=== PATIENT | male | born 1960 | race Caucasian/White ===

== ENCOUNTER 2018-03-01 11:44 | Observation (INO) ==
[2018-03-01 12:23] LABS: Basophils # 0.1 K/mcL (0.0-0.2); Basophils % 0.5 %; Eosinophils # 0.1 K/mcL (0.0-0.6); Eosinophils % 0.6 %; Hematocrit 39.3 % (37.5-50.1); Immature Granulocytes % 0.4 % (0-4); Lymphocytes # 1.7 K/mcL (0.6-4.6); Lymphocytes % 16.1 %; Mean Corpuscular HGB Conc 35.6 g/dL (31.6-35.5); Mean Corpuscular Hemoglobin 31.7 pg (28.0-33.3); Mean Corpuscular Volume 88.9 fL (83.0-100.0); Mean Platelet Volume 10.4 fL (9.4-12.4); Monocytes # 0.6 K/mcL (0.0-1.3); Neutrophils # 7.8 K/mcL (1.6-8.9); Platelet Count 202 K/mcL (140-400); Red Blood Count 4.42 M/mcL (4.19-5.50); Red Cell Distribution Width 13.7 % (11.5-14.5); Segmented Neutrophils % 76.4 %
--- NOTE | 2018-03-01 12:42 | Emergency Department Note ---
Disposition Clinical Impression: Chest pain, Weakness Disposition: Admitted As Inpatient Condition: Good Referrals: Renata Fuller MD [Primary Care Provider] - Forms: ED Satisfaction Letter General Adult HPI - General Chief complaint: ED Chest Pain Stated complaint: Weak Time Seen by Provider: 03/01/18 11:50 Source: EMS Limitations: no limitations - History of Present Illness Pain Scale: 0 - Related Data Home Medications Medication Instructions Recorded Confirmed Aspirin [Lo-Dose Aspirin EC] 81 mg PO DAILY 03/01/18 03/01/18 Atorvastatin Calcium [Lipitor] 80 mg PO HS 03/01/18 03/01/18 Lisinopril [Lisinopril] 2.5 mg PO DAILY 03/01/18 03/01/18 Metoprolol [Lopressor] 12.5 mg PO BID 03/01/18 03/01/18 Nitroglycerin [Nitrostat] 0.4 mg SL Q5MIN PRN 03/01/18 03/01/18 Allergies Allergy/AdvReac Type Severity Reaction Status Date / Time No Known Allergies Allergy Verified 03/01/18 13:13 Past Medical History - Past Medical History Medical history: Reports: myocardial infarction Surgical history: Reports: other (Cysto 07/2015--no significant findings. ) Psychiatric history: Reports: no psych history - Social History Smoking Status: Current every day smoker Smokeless Tobacco Status: No Alcohol use: Reports: none Drug use: Reports: none Physical Exam - General Limitations: no limitations General appearance: alert Course Vital Signs Temperature 97.7 F 03/01/18 11:46 Pulse Rate 58 03/01/18 11:46 Respiratory Rate 18 03/01/18 11:46 Blood Pressure 125/72 03/01/18 11:46 O2 Sat by Pulse Oximetry 98 03/01/18 11:46 Temperature 97.7 F 03/01/18 11:46 Pulse Rate 58 03/01/18 11:46 Respiratory Rate 18 03/01/18 11:46 Blood Pressure 125/72 03/01/18 11:46 O2 Sat by Pulse Oximetry 98 03/01/18 11:46 Oxygen Delivery Oxygen Delivery Room Air Medical Decision Making - Lab Data Result diagrams: 03/01/18 12:03 03/01/18 12:03 Lab Results 03/01/18 03/01/18 Range/Units 12:03 12:03 WBC 10.2 (4.3-11.1) K/mcL RBC 4.42 (4.19-5.50) M/mcL Hgb 14.0 (12.9-16.9) g/dL Hct 39.3 (37.5-50.1) % MCV 88.9 (83.0-100.0) fL MCH 31.7 (28.0-33.3) pg MCHC 35.6 H (31.6-35.5) g/dL RDW 13.7 (11.5-14.5) % Plt Count 202 (140-400) K/mcL MPV 10.4 (9.4-12.4) fL Immature Gran % 0.4 (0-4) % Seg Neutrophils % 76.4 % Lymphocytes % 16.1 % Monocytes % 6.0 % Eosinophils % 0.6 % Basophils % 0.5 % Neutrophils # 7.8 (1.6-8.9) K/mcL Lymphocytes # 1.7 (0.6-4.6) K/mcL Monocytes # 0.6 (0.0-1.3) K/mcL Eosinophils # 0.1 (0.0-0.6) K/mcL Basophils # 0.1 (0.0-0.2) K/mcL Sodium 138 (136-145) mEq/L Potassium 3.7 (3.5-5.1) mEq/L Chloride 107 (98-107) mEq/L Carbon Dioxide 26 (23-29) mEq/L BUN 16 (6-20) mg/dL Creatinine 0.74 (0.70-1.30) mg/dL Est GFR ( Amer) > 60 (> 60) Est GFR (Non-Af Amer) > 60 (> 60) BUN/Creatinine Ratio 22 (6-26) Glucose 123 H (70-105) mg/dL Calculated Osmolality 289 (280-300) Calcium 9.2 (8.6-10.3) mg/dL Troponin I < 0.03 (< 0.04) ng/mL Attestation Statement - Attestation Attestation: I examined this patient and my medical decision-making was reviewed with the Resident Physician. I agree with the documented findings, disposition and treatment plan as described except to the extent set forth below. Patient to the ED with chest pain. Onset just prior to arrival. Was accompanied with weakness and nausea. Feeling better after taking home nitroglycerin. On examination he is pleasant and conversant in no acute distress. Heart regular rate and rhythm and lungs are clear. Plan. Cardiac workup is negative. He does have a history of coronary disease and a chest pain that was relieved with nitroglycerin. Patient will be admitted for further cardiac workup. Heart Score - Score History: Highly Suspicious EKG: Non Specific repolarisation Disturbance Age: 45-65 Risk Factors: Equal/Greater than 3 risk factor or history of atherosclerotic disease Troponin: Less than normal limit HEART Score Total: 6
[2018-03-01 12:44] LABS: BUN/Creatinine Ratio 22 (6-26); Blood Urea Nitrogen 16 mg/dL (6-20); Calcium 9.2 mg/dL (8.6-10.3); Carbon Dioxide 26 mEq/L (23-29); Chloride 107 mEq/L (98-107); Glucose 123 mg/dL (70-105); Osmolality,Calculated 289 (280-300); Potassium 3.7 mEq/L (3.5-5.1); Sodium 138 mEq/L (136-145); Troponin I < 0.03 ng/mL (< 0.04); eGFR For African Americans > 60 (> 60); eGFR For Non-African Americans > 60 (> 60)
[2018-03-01] MEDS ORDERED: Aspirin 81 MG TAB.CHEW PO ONE (12:52)
--- NOTE | 2018-03-01 13:46 | Emergency Department Note ---
Disposition Clinical Impression: Weakness Chest pain Qualifiers: Chest pain type: unspecified Qualified Code(s): R07.9 - Chest pain, unspecified Disposition: Admitted As Inpatient Condition: Good Referrals: Renata Fuller MD [Primary Care Provider] - Forms: ED Satisfaction Letter Chest Pain HPI - General Chief Complaint: ED Chest Pain Stated Complaint: Weak Time Seen by Provider: 03/01/18 11:50 Source: EMS Limitations: no limitations Vital Signs Reviewed: Yes Nursing Notes Reviewed: Yes - History of Present Illness HPI Narrative: Patient presents today for evaluation of weakness nausea and chest pain. Patient states the weakness and nausea him approximately 10:00. Patient had associated chest pain to the left side of his chest. Chest pain described as a pressure as well as a sharpness the lasted for minutes. Self resolved with rest. Patient's previous heart attack did not have typical symptoms. Patient states that he had nausea and weakness with left arm tingling. States that he had left arm pain yesterday. Patient states symptoms have resolved upon arrival in the emergency department. He did take aspirin and all his daily normal medications. Patient states that he was feeling like he was somewhat off balance and had a hard time walking or he was having the symptoms. Presents to emergency department with mild bradycardia at 55. Patient is in sinus rhythm. Patient has a stable blood pressure. Previous heart history including stent placement in September 2015. His cardiologists Dr Paredes. Severity scale (1-10): 0 - Related Data Home Medications Medication Instructions Recorded Confirmed Aspirin [Lo-Dose Aspirin EC] 81 mg PO DAILY 03/01/18 03/01/18 Atorvastatin Calcium [Lipitor] 80 mg PO HS 03/01/18 03/01/18 Lisinopril [Lisinopril] 2.5 mg PO DAILY 03/01/18 03/01/18 Metoprolol [Lopressor] 12.5 mg PO BID 03/01/18 03/01/18 Nitroglycerin [Nitrostat] 0.4 mg SL Q5MIN PRN 03/01/18 03/01/18 Allergies Allergy/AdvReac Type Severity Reaction Status Date / Time No Known Allergies Allergy Verified 03/01/18 13:13 Review of Systems: CONSTITUTIONAL: No weight loss, fever, chills, weakness or fatigue. HEENT: Eyes: No visual changes. Ears, Nose, Throat: No hearing loss, difficulty talking or unable to swallow. SKIN: No rash or itching. CARDIOVASCULAR: Chest pain RESPIRATORY: No shortness of breath, cough or sputum. GASTROINTESTINAL: Nausea No anorexia, vomiting or diarrhea. No abdominal pain or blood. GENITOURINARY: No burning on urination or hematuria. NEUROLOGICAL: Dizziness No headache,, syncope, paralysis, ataxia, numbness or tingling in the extremities. No change in bowel or bladder control. MUSCULOSKELETAL: No muscle pain, back pain, joint pain or stiffness. Chest Pain PMH - Past Medical History Medical history: Reports: myocardial infarction Surgical history: Reports: other (Cysto 07/2015--no significant findings. ) Psychiatric history: Reports: no psych history - Social History Smoking Status: Current every day smoker Alcohol use: Reports: none Drug use: Reports: none Physical Exam General: Well appearing, nontoxic, no acute distress Head: Normocephalic Atraumatic Eyes: PERRL, EOMI ENT: Airway patent, no stridor Neck: supple, no meningismus Chest: Lungs clear to auscultation bilateral Cardiac: Regular rhythm Abdomen: soft, nontender, nondistended; no guarding, rebound, or tenderness to percussion Musculoskeletal: Calves symmetric, nontender, no palpable cord Skin: No rash, normal skin tone Neuro: Alert and Oriented to person, place, and time; No focal deficit, CN 2-12 symmetric and intact - General Limitations: no limitations General appearance: alert Course - Reevaluation(s) Reevaluation #1: Patient remained chest pain-free. Patient will be brought in for cardiac evaluation - Consultations Consultation #1: Hospitalist accepts Vital Signs Temperature 97.7 F 03/01/18 11:46 Pulse Rate 58 03/01/18 11:46 Respiratory Rate 18 03/01/18 11:46 Blood Pressure 125/72 03/01/18 11:46 O2 Sat by Pulse Oximetry 98 03/01/18 11:46 Temperature 97.7 F 03/01/18 11:46 Pulse Rate 58 03/01/18 11:46 Respiratory Rate 18 03/01/18 11:46 Blood Pressure 125/72 03/01/18 11:46 O2 Sat by Pulse Oximetry 98 03/01/18 11:46 Oxygen Delivery Oxygen Delivery Room Air Chest Pain - Medical Records Medical records reviewed: Yes I reviewed the patient's medical records. - Lab Data Lab results reviewed: Yes I reviewed the patient's lab results. Result diagrams: 03/01/18 12:03 03/01/18 12:03 Lab Results 03/01/18 03/01/18 Range/Units 12:03 12:03 WBC 10.2 (4.3-11.1) K/mcL RBC 4.42 (4.19-5.50) M/mcL Hgb 14.0 (12.9-16.9) g/dL Hct 39.3 (37.5-50.1) % MCV 88.9 (83.0-100.0) fL MCH 31.7 (28.0-33.3) pg MCHC 35.6 H (31.6-35.5) g/dL RDW 13.7 (11.5-14.5) % Plt Count 202 (140-400) K/mcL MPV 10.4 (9.4-12.4) fL Immature Gran % 0.4 (0-4) % Seg Neutrophils % 76.4 % Lymphocytes % 16.1 % Monocytes % 6.0 % Eosinophils % 0.6 % Basophils % 0.5 % Neutrophils # 7.8 (1.6-8.9) K/mcL Lymphocytes # 1.7 (0.6-4.6) K/mcL Monocytes # 0.6 (0.0-1.3) K/mcL Eosinophils # 0.1 (0.0-0.6) K/mcL Basophils # 0.1 (0.0-0.2) K/mcL Sodium 138 (136-145) mEq/L Potassium 3.7 (3.5-5.1) mEq/L Chloride 107 (98-107) mEq/L Carbon Dioxide 26 (23-29) mEq/L BUN 16 (6-20) mg/dL Creatinine 0.74 (0.70-1.30) mg/dL Est GFR ( Amer) > 60 (> 60) Est GFR (Non-Af Amer) > 60 (> 60) BUN/Creatinine Ratio 22 (6-26) Glucose 123 H (70-105) mg/dL Calculated Osmolality 289 (280-300) Calcium 9.2 (8.6-10.3) mg/dL Troponin I < 0.03 (< 0.04) ng/mL - Radiology Data Radiology results reviewed: Yes I reviewed the patient's radiology results. - EKG Data EKG attestation: Yes I reviewed and interpreted this EKG. EKG results narrative: EKG has sinus bradycardia with ventricular rate of 55. OH 156. QRS 12. QTC 438. Patient has no significant ST elevations or depressions. No significant change from previous EKG which also showed sinus bradycardia on 11/11/2015. Heart Score - Score History: Moderately Suspicious EKG: Normal Age: 45-65 Risk Factors: Equal/Greater than 3 risk factor or history of atherosclerotic disease Troponin: Less than normal limit HEART Score Total: 4
[2018-03-01] MEDS ORDERED: Naloxone 0.4 MG/ML INJ IVP PRN (14:47)
[2018-03-01] MEDS ORDERED: Nitroglycerin 0.4 MG TAB.SUBL SL PRN (14:49)
[2018-03-01 14:50] LABS: Bilirubin,Urine Negative (Negative); Blood,Urine Small (Negative); Clarity,Urine Clear (Clear); Color,Urine Yellow (Yellow); Glucose,Urine (UA) Normal (Normal); Ketones,Urine Negative (Negative); Leukocyte Esterase,Urine Negative (Negative); Nitrite,Urine Negative (Negative); Protein,Urine Negative (Neg-Trace); Specific Gravity,Urine 1.017 (1.010-1.025); Urobilinogen,Urine Normal (Normal)
[2018-03-01 14:52] LABS: Bacteria,Urine None Seen per hpf (None-Few); Hyaline Casts,Urine None Seen per lpf (None-Few); Squamous Epithelial Cell,Urine Moderate per lpf (None-Few); WBC,Urine 0-3 per hpf (0-3)
--- NOTE | 2018-03-01 15:00 | Internal Med History&Physical ---
Date of Encounter: 03/01/18 Time of Encounter: 14:56 Internal Medicine - H&P: HPI Chief complaint: CP Admitted From: Home Plans for Post Hospital Care: Home History of present illness: Mr. Horn is a 57 year old male with history of CAD status post stent in 2014 under care of stucco laborer Dr. Paredes, hypertension, chronic a smoker half pack per day came to emergency room with complaint of lightheadedness, dizziness, nausea associated with left stabbing nonradiating chest pain started 10:00 morning today and that lasted for a few seconds therefore he took 1 dose nitroglycerin that relieved but chest pain reappeared therefore he took second dose of nitroglycerin and chest pain got completely relieved. But he had concern about persistent lightheadedness and dizziness therefore decided to come to ER. In ER initial troponin negative EKG with no acute finding chest x- ray negative. Your physician called on-call hospitalists for the admission chest pain rule out ACS. At present Patient denies fever, chills, nausea, vomiting, chest pain, headache , dizziness, abdominal pain, cough, short of breath, urinary or bowel complaint Past Med Surg Social Fam HX - Past Medical History Medical history: myocardial infarction Psychiatric history: no psych history - Past Surgical History Surgical History: other (Cysto 07/2015--no significant findings. ) - Social History Smoking Status: Current every day smoker Smokeless Tobacco Status: No Alcohol use: none Drug use: none - Family History Father Adopted: No Family Member Ethnicity: Non- Living Status: Still Living Hx Family Cardiac Disorders: Yes ([place], HTN) Hx Family Respiratory Disorders: Yes (Smoker) Hx Family Cancer: Yes (Larynx) Hx Family GI Disorders: No Hx Family Endocrine Disorder: Yes (DM) Hx Family Neuromuscular Disorders: No Hx Family Neurologic Disorders: Yes (? aging dementia) Hx Family HEENT Disorders: Yes ([place], poor vision) Hx Family Autoimmune Disorders: No Internal Medicine - H&P: Meds Aspirin [Lo-Dose Aspirin EC] 81 mg PO DAILY 03/01/18 [History] Atorvastatin Calcium [Lipitor] 80 mg PO HS 03/01/18 [History] Lisinopril [Lisinopril] 2.5 mg PO DAILY 03/01/18 [History] Metoprolol [Lopressor] 12.5 mg PO BID 03/01/18 [History] Nitroglycerin [Nitrostat] 0.4 mg SL Q5MIN PRN 03/01/18 [History] 3 Allergy/AdvReac Type Severity Reaction Status Date / Time No Known Allergies Allergy Verified 03/01/18 13:13 All Systems PM: as documented above in the HPI. - Constitutional Vitals: Temp Pulse Resp BP Pulse Ox 97.7 F 58 18 125/72 98 03/01/18 11:46 03/01/18 11:46 03/01/18 11:46 03/01/18 11:46 03/01/18 11:46 Exam: General appearance: No acute distress, A&O X 3 Head exam: Atraumatic Eye exam: EOMI, PERRLA ENT exam: Moist oral mucosa Neck nontender, supple Respiratory exam: Clear to auscultation bilaterally Cardiovascular exam: Regular rate and rhythm, no systolic murmur Abdominal exam: Soft, nontender, nondistended, positive bowel sounds Extremities exam: No calf tenderness, no pedal edema Present: Skin-no rash, warm, dry, intact Neurological exam: Alert, awake, oriented 3, CN II-XII intact, no focal deficits. No facial droop. Normal speech. Normal gait. Internal Med - H&P Results - Labs CBC & Chem 7: 03/01/18 12:03 03/01/18 12:03 - Assessment and plan (1) Chest pain, rule out acute myocardial infarction Current Visit: Yes Status: Acute Assessment and plan: Rule out ACS. Chest pain-free now after 2 dose of nitroglycerin. Initial troponin negative no acute finding in EKG. High risk for cardiac disease therefore need ischemic cardiac workup. Echocardiogram and stress tests ordered. Will consult stucco laborer if needed continue aspirin, beta lisa, statin, DIAMOND inhibitor, nitroglycerin, oxygen when necessary. Will consider anticoagulation therapy if any concern such as positive troponin, change in EKG or chest pain reappearance (2) Hypertension Current Visit: Yes Status: Chronic Assessment and plan: Stable. Continue home medicine Qualifiers: Hypertension type: essential hypertension Qualified Code(s): I10 - Essential (primary) hypertension (3) DVT prophylaxis Current Visit: Yes Status: Acute Assessment and plan: SCDs. Lovenox - Time Spent With Patient Total time spent is greater than 50% in coordination of care (as documented) at patient's floor/unit and/or counseling patient: 25 - 35 minutes
[2018-03-02 03:49] LABS: Basophils # 0.1 K/mcL (0.0-0.2); Eosinophils # 0.3 K/mcL (0.0-0.6); Hematocrit 38.9 % (37.5-50.1); Hemoglobin 13.8 g/dL (12.9-16.9); Immature Granulocytes % 0.3 % (0-4); Lymphocytes # 2.4 K/mcL (0.6-4.6); Mean Corpuscular HGB Conc 35.5 g/dL (31.6-35.5); Mean Corpuscular Hemoglobin 31.6 pg (28.0-33.3); Mean Platelet Volume 10.6 fL (9.4-12.4); Monocytes # 0.8 K/mcL (0.0-1.3); Monocytes % 11.3 %; Neutrophils # 3.3 K/mcL (1.6-8.9); Platelet Count 216 K/mcL (140-400); Red Blood Count 4.37 M/mcL (4.19-5.50); Red Cell Distribution Width 13.9 % (11.5-14.5); Segmented Neutrophils % 48.4 %
[2018-03-02 04:10] LABS: BUN/Creatinine Ratio 18 (6-26); Blood Urea Nitrogen 12 mg/dL (6-20); Calcium 9.2 mg/dL (8.6-10.3); Carbon Dioxide 26 mEq/L (23-29); Chloride 113 mEq/L (98-107); Chol/HDL Ratio 2.3 (0-4.9); Cholesterol 83 mg/dL (< 200); Glucose 98 mg/dL (70-105); HDL Cholesterol 36 mg/dL (40-59); LDL Cholesterol,Calculated 35 mg/dL (0-99); Osmolality,Calculated 294 (280-300); Sodium 142 mEq/L (136-145); Triglycerides 58 mg/dL (< 150); eGFR For African Americans > 60 (> 60); eGFR For Non-African Americans > 60 (> 60)
[2018-03-02] MEDS ORDERED: *HR* Enoxaparin 40 MG/0.4 ML SYRINGE SQ SCH (06:00)
[2018-03-02] MEDS ORDERED: Aspirin Enteric Coated 81 MG Tablet PO SCH (09:00)
--- NOTE | 2018-03-02 09:27 | Internal Med Progress Note ---
Date of Encounter: 03/02/18 Time of Encounter: 09:25 - Assessment and plan (1) Chest pain, rule out acute myocardial infarction Current Visit: Yes Status: Acute Assessment and plan: hx CAD. Presented with chest pain, nausea, fatigue and diaphoresis. Chest pain resolved after 2 dose of nitroglycerin. Serial troponin negative, no acute finding in EKG. High risk for cardiac disease therefore need ischemic cardiac workup. TTE and stress test pending. Continue aspirin, beta lisa, statin, DIAMOND inhibitor, nitroglycerin, oxygen when necessary. Consult cardiology if needed. (2) Hypertension Current Visit: Yes Status: Chronic Assessment and plan: per hx. BP controlled. Continue home medicine Qualifiers: Hypertension type: essential hypertension Qualified Code(s): I10 - Essential (primary) hypertension (3) DVT prophylaxis Current Visit: Yes Status: Acute Assessment and plan: Lovenox - Time Spent With Patient Total time spent is greater than 50% in coordination of care (as documented) at patient's floor/unit and/or counseling patient: - Subjective Interval history: Seen and examined at bedside. Patient is new to me, information obtained from chart review and patient report. Sitting up on edge of bed, says he had uneventful night. Says he feels much better. No chest pain or shortness of breath. No nausea or vomiting. He is aware of stress test tomorrow and need to be nothing by mouth after midnight. - Constitutional Vitals: Temp Pulse Resp BP Pulse Ox 97.3 F L 71 17 126/76 96 03/02/18 06:26 03/02/18 06:26 03/02/18 06:26 03/02/18 06:26 03/02/18 07:30 General appearance: Present: A&O X 3, pleasant - Head Head exam: Present: atraumatic, normocephalic - Eye Eye exam: Present: PERRL, conjuntiva pink, sclera anicteric Pupils: Present: PERRL - Neck Neck exam general surgery: Present: supple, trachea midline. Absent: lymphadenopathy - Respiratory Respiratory exam: Present: CTAB. Absent: accessory muscle use, rales, rhonchi, wheezes - Cardiovascular Cardiovascular exam: Present: RRR, +S1, +S2. Absent: diastolic murmur, gallop, rubs, systolic murmur - GI/Abdominal GI/Abdominal exam: Present: normal bowel sounds, soft, no peritoneal signs. Absent: distended, tenderness - Extremities Exam Extremities exam: Present: warm, radial pulses palpable and symmetrical. Absent : calf tenderness, cyanotic, pedal edema - Neurological Exam Neurological exam: Present: CN II-XII intact, oriented X3, no focal deficits. Absent: pronater drift, facial droop, speech deficit - Skin Skin exam: Present: dry, intact Internal Medicine: Result - Labs CBC & Chem 7: 03/02/18 03:27 03/02/18 03:27 Labs: Short CBC 03/02/18 Range/Units 03:27 WBC 6.8 (4.3-11.1) K/mcL Hgb 13.8 (12.9-16.9) g/dL Hct 38.9 (37.5-50.1) % Plt Count 216 (140-400) K/mcL Neutrophils # 3.3 (1.6-8.9) K/mcL BMP 03/02/18 03:27 Sodium 142 Potassium 4.0 Chloride 113 H Carbon Dioxide 26 BUN 12 Creatinine 0.68 L Glucose 98 Calcium 9.2 Cardiac Enzymes 03/01/18 03/01/18 Range/Units 15:18 20:44 Troponin I < 0.03 < 0.03 (< 0.04) ng/mL Consult Discharge Plan - Plan Referrals: Renata Fuller MD [Primary Care Provider] -
[2018-03-02 10:24] VITALS: BP 113/74
--- NOTE | 2018-03-02 12:59 | Cardiology Consult Note ---
Date of Encounter: 03/02/18 Time of Encounter: 08:00 Assessment and Plan (1) Lightheadedness Current Visit: Yes Status: Acute May have been all vasovagal. No recurrent symptoms, feels well. No evidence of arrhythmia overnight on telemetry. BP/HR stable on arrival of EMS. Consider Holter monitor as outpatient if symptoms recur. (2) Chest pain Current Visit: Yes Status: Acute Atypical for angina, likely noncardiac in etiology. Transient, lasted few seconds, resolved even before pt took SL NTG. Has not had any recurrent symptoms similar to previous angina. Recommend outpatient cardiology f/u. Qualifiers: Chest pain type: unspecified Qualified Code(s): R07.9 - Chest pain, unspecified (3) CAD (coronary artery disease) Current Visit: No Status: Chronic Risk factor modification. Continue medical therapy. Qualifiers: Coronary Disease-Associated Artery/Lesion type: [place] artery [place] vs. transplanted heart: [place] heart Associated angina: without angina Qualified Code(s): I25.10 - Atherosclerotic heart disease of [place] coronary artery without angina pectoris (4) Hypertension Current Visit: No Status: Chronic Qualifiers: Hypertension type: essential hypertension Qualified Code(s): I10 - Essential (primary) hypertension Discussion w patient/family: The assessment and plan as outlined above was discussed with the patient and/or family members who expressed understanding and agreement. All questions were answered. Thank you for involving us in the care of your patient. Please call with any questions. History of Present Illness Consult date: 03/02/18 Requesting physician: Katy Heaton Consult reason: chest pain Chief complaint: chest pain History of present illness: Mr. Horn is a 57 year old male with hx CAD s/p PCI, HTN, tobacco use presents for evaluation of lightheadedness, chest discomfort. Pt states was in his baseline state of health until yesterday morning. Had onset of lightheadedness while outside. Attributed it initially to taking his BP meds but when persisted, tried eating a PB&J. Started developing nausea and generalized weakness. Then had a sharp pinprick of chest pain that lasted a few seconds. Decided to take SL NTG to see if improved symptoms- lightheadedness and weakness worsened and had another sharp CP, so took a 2nd SL NTG and called EMS. On arrival of EMS, pt HR 62, BP 130/62. Pt states all symptoms resolved by 7pm last evening and feels well this AM walking around room. Denies nausea, vomiting, diarrhea, fevers. Denies palpitations. Active without symptoms until yesterday. Pt has known history of CAD and PCI of LAD in 2015. Previous anginal equivalent was L arm/shoulder discomfort. Has not had any recurrent arm discomfort recently. Past Med Surg Social Fam HX - Past Medical History Medical history: coronary artery disease, hyperlipidemia, hypertension, myocardial infarction Psychiatric history: anxiety - Past Surgical History Surgical History: angioplasty/stent, other - Social History Smoking Status: Current every day smoker Smokeless Tobacco Status: No Alcohol use: none Drug use: marijuana - Family History Father Adopted: No Family Member Ethnicity: Non- Living Status: Still Living Hx Family Cardiac Disorders: Yes ([place], HTN) Hx Family Respiratory Disorders: Yes (Smoker) Hx Family Cancer: Yes (Larynx) Hx Family GI Disorders: No Hx Family Endocrine Disorder: Yes (DM) Hx Family Neuromuscular Disorders: No Hx Family Neurologic Disorders: Yes (? aging dementia) Hx Family HEENT Disorders: Yes ([place], poor vision) Hx Family Autoimmune Disorders: No Medications and Allergies Aspirin [Lo-Dose Aspirin EC] 81 mg PO DAILY 03/01/18 [History] Atorvastatin Calcium [Lipitor] 80 mg PO HS 03/01/18 [History] Lisinopril [Lisinopril] 2.5 mg PO DAILY 03/01/18 [History] Metoprolol [Lopressor] 12.5 mg PO BID 03/01/18 [History] Nitroglycerin [Nitrostat] 0.4 mg SL Q5MIN PRN 03/01/18 [History] 3 Allergy/AdvReac Type Severity Reaction Status Date / Time No Known Allergies Allergy Verified 03/01/18 13:13 All Systems Review: The remainder of the systems were reviewed and are negative - Cardiovascular Cardiovascular: as per HPI Physical Examination Vital Signs, Last 4 Hours Temp Pulse Resp BP Pulse Ox 03/02/18 10:23 97.8 F 57 15 113/74 98 General: Conversant, No Apparent Distress HEENT: Atraumatic, Normocephaly, Mucus Membranes Moist Neck: No JVD, Normal carotid pulses Cardiac: Reg Rate and Rhythm, Normal S1 and S2, No Murmur Lungs: Normal Breath Sounds, No Wheeze, Rales, Rhonchi Neuro: Alert and responsive, No focal deficits noted Abdomen: Soft, Non-Tender Skin: No rashes noted on visualized skin Musculoskeletal: No Chest Wall Tenderness Extremities: No Clubbing, No Cyanosis, No Edema, Normal Pulses Results 03/02/18 03:27 03/02/18 03:27 Lab Results 03/01/18 03/01/18 03/02/18 15:18 20:44 03:27 WBC 6.8 Hgb 13.8 Hct 38.9 Plt Count 216 Sodium Potassium Chloride Carbon Dioxide BUN Creatinine Glucose Calcium Troponin I < 0.03 < 0.03 03/02/18 03:27 WBC Hgb Hct Plt Count Sodium 142 Potassium 4.0 Chloride 113 H Carbon Dioxide 26 BUN 12 Creatinine 0.68 L Glucose 98 Calcium 9.2 Troponin I - EKG Interpretation EKG results cardiology: personally reviewed (sinus bradycardia with no acute changes) Consult Discharge Plan - Plan Referrals: Renata Fuller MD [Primary Care Provider] -
--- NOTE | 2018-03-03 14:24 | Electrocardiograph Report ---
[address] [address] Test Date: 2018-03-01 Pat Name: Paul Horn Department: 103 Room: 3B13 Gender: M Interior Painter: NEVILLE : 1960 Requested By: Guillermina See Order Number: [id number] Reading MD: Faye Paredes Measurements Intervals [place] Rate: 55 P: 57 NE: 156 QRS: 50 QRSD: 102 T: 44 QT: 449 QTc: 438 Interpretive Statements SINUS BRADYCARDIA Electronically Signed On 03-03-2018 14:23:02 EDT by Faye Paredes
== END 2018-03-02 13:36 | disposition home or self-care (01) ==
LOC: EMEROO 11:44 → 3BNU 11:44
PROVIDERS: ADMIT General Practice; ATTEND General Practice

== ENCOUNTER 2019-05-06 22:06 | Observation (INO) ==
--- NOTE | 2019-05-06 22:12 | Emergency Department Note ---
Disposition Clinical Impression: ACS (acute coronary syndrome) Disposition: Still a Patient Time of Disposition: 22:11 General Adult HPI - General Stated complaint: Chest Pain Time Seen by Provider: 05/06/19 22:07 Source: patient, EMS Mode of arrival: EMS Limitations: no limitations Nursing Notes Reviewed: Yes Vital Signs Reviewed: Yes - History of Present Illness HPI Narrative: Attestation note: Patient was seen with the emergency medicine resident/nurse practitioner/physician anesthesia assistant/transitional resident/medical student: Dr. ROSE MARY WOMACK. I was present for the significant portions of the performance and interpretation of procedures and EKGs. I have personally performed a face to face evaluation on this patient. I have reviewed and agree with history and physical examination patient management and disposition. 58-year-old male by EMS for chest pain which has resolved patient has history of TX and stent which was 2015 at [facility] states he had chest pain at rest tonight for nitroglycerin and it got made the pain go away completely however he felt tired and lightheaded which is unusual but never happened. They said his blood pressure went down from about 120-100 systolic patient is awake and alert says no more chest pain patient will undergo ACS workup. Patient's heart score approximately between 3 and forth this current time. It is unclear with the patient normally takes nitroglycerin. That distinction characteristic my tip the balance from stable angina to unstable angina. Patient was ready given aspirin by EMS. Disposition pending - Related Data Home Medications Medication Instructions Recorded Confirmed Aspirin [Lo-Dose Aspirin EC] 81 mg PO DAILY 03/01/18 03/01/18 Atorvastatin Calcium [Lipitor] 80 mg PO HS 03/01/18 03/01/18 Lisinopril 2.5 mg PO DAILY 03/01/18 03/01/18 Metoprolol [Lopressor] 12.5 mg PO BID 03/01/18 03/01/18 Nitroglycerin [Nitrostat] 0.4 mg SL Q5MIN PRN 03/01/18 03/01/18 Allergies Allergy/AdvReac Type Severity Reaction Status Date / Time No Known Allergies Allergy Verified 03/01/18 13:13 Past Medical History - Past Medical History Medical history: Reports: coronary artery disease, hyperlipidemia, hypertension, myocardial infarction Surgical history: Reports: angioplasty/stent, other Psychiatric history: Reports: anxiety - Social History Smoking Status: Current every day smoker Smokeless Tobacco Status: No Alcohol use: Reports: none Drug use: Reports: marijuana
--- NOTE | 2019-05-06 22:14 | Emergency Department Note ---
Disposition Clinical Impression: ACS (acute coronary syndrome) Disposition: Admitted As Inpatient Condition: Fair Time of Disposition: 02:17 Chest Pain HPI - General Stated Complaint: Chest Pain Time Seen by Provider: 05/06/19 22:07 Source: patient, EMS Mode of arrival: EMS Limitations: no limitations Vital Signs Reviewed: Yes Nursing Notes Reviewed: Yes - History of Present Illness HPI Narrative: 58-year-old male who past medical history of myocardial infarction in 2015 with stent placement currently on baby aspirin and nitroglycerin for the management of angina pectoralis presenting for one hour of midsternal chest pain. Patient states that he took a nitroglycerin approximate one hour ago due to this pain which completely resolved his symptoms, however the patient was continuing to feel lightheaded and dizzy with some mild nausea and called 911. EMS states that they gave the remainder dose of 381 mg aspirins to complete the patient's 324 mg dose required for cardiac prophylaxis, they also gave Zofran 4 mg IV in route which completely resolved the patient's nausea. Patient states at this time that he was Comes completely asymptomatic and has no other concerns or complaints at this time. Upon my initial examination the patient sitting upright in hospital but he is awake alert oriented engaged conversation answering questions appropriately, he is in no acute distress he is not pale nondiaphoretic noncyanotic. The patient has no lateralizing signs. We will initiate chest pain workup with concern for ACS versus angina pectoralis. His basic labs plus troponin EKG and chest x-ray. Pt complaint: chest pain Onset (ago): hour(s) Duration: intermittent Onset: during rest Pain Location: substernal Severity: now resolved Severity scale (1-10): 0 Treatments prior to arrival chest pain: aspirin, nitroglycerin, other (Zofran) - Related Data Home Medications Medication Instructions Recorded Confirmed Aspirin [Lo-Dose Aspirin EC] 81 mg PO DAILY 03/01/18 05/07/19 Atorvastatin Calcium [Lipitor] 80 mg PO HS 03/01/18 05/07/19 Metoprolol [Lopressor] 12.5 mg PO BID 03/01/18 05/07/19 Nitroglycerin [Nitrostat] 0.4 mg SL Q5MIN PRN 03/01/18 05/07/19 Allergies Allergy/AdvReac Type Severity Reaction Status Date / Time No Known Allergies Allergy Verified 05/06/19 22:12 Review of Systems: *See History of Present Illness for more detail Constitutional: Denies: fever, chills Cardiovascular: Denies: chest pain Respiratory: Denies: dyspnea, cough, hemoptysis Gastrointestinal: Denies: abdominal pain, nausea, vomiting, diarrhea, constipation, hematemesis, melena, hematochezia Genitourinary: Denies: hematuria Musculoskeletal: Denies: back pain, neck pain Neurological: Denies: headache, weakness, lightheadedness/dizziness, numbness, paresthesias, difficulty with ambulation. Endocrine: Denies: fatigue All systems ED: reviewed and negative except as stated. Review of Systems: As Per HPI Chest Pain PMH - Past Medical History Medical history: Reports: coronary artery disease, hyperlipidemia, hypertension, myocardial infarction Surgical history: Reports: angioplasty/stent, other Psychiatric history: Reports: anxiety - Social History Smoking Status: Current every day smoker Alcohol use: Reports: none Drug use: Reports: marijuana Physical Exam Constitutional: No acute distress, [id number], engaged to conversation, speech is fluid, answers questions appropriately Neuro: GCS 15, no overt focal neurological deficits Head: Atraumatic, normocephalic Eyes: Pupils equal, round and reactive to light, no scleral icterus, no conjunctival injection Neck: Trachea midline without deviation. Anterior neck is supple without swelling. *Chest: Symmetric chest wall rise *Heart: Cardiac rhythm and rate are regular with S1 and S2 , no S3 or S4 appreciated, no murmurs, gallops, rubs, or clicks. *Lungs: Lungs are clear to auscultation bilaterally, without accessory muscle use or prolonged expiratory phase. No wheezes, rhonchi or stridor appreciated. Abdomen: Abdomen is flat, soft to palpation, normal bowel sounds. No abdominal bruit auscultated. Non-distended, non-rigid, no organomegaly, no ascites appreciated. No pulsatile mass, no tenderness or guarding to palpation in all four quadrants, no rebound Extremities: Normal capillary refill without evidence of pedal edema, joint swelling or erythema. Pulses/motor intact in all 4 extremities. Psychiatric exam: Patient displays a normal affect and mood for the environment. No overt signs of hallucination. Integumentary: warm, dry, intact, normal color. No rash, cyanosis, diaphoresis, erythema, or pallor - General Limitations: no limitations General appearance: alert, in no apparent distress Course Vital Signs Temperature 98.7 F 05/06/19 22:08 Pulse Rate 65 05/06/19 22:08 Respiratory Rate 20 05/06/19 22:08 Blood Pressure 119/75 05/06/19 22:08 O2 Sat by Pulse Oximetry 97 05/06/19 22:08 Temperature 97.7 F 05/07/19 00:34 Pulse Rate 58 05/07/19 00:34 Respiratory Rate 16 05/07/19 00:34 Blood Pressure 114/72 05/07/19 00:34 O2 Sat by Pulse Oximetry 97 05/07/19 00:34 Oxygen Delivery Oxygen Delivery Room Air Chest Pain - MDM Narrative Medical decision making narrative: Patient's EKG, laboratory and imaging results are negative for any acute pathology. However as the patient's heart score is 5 with his history of myocardial infarction this meets criterion for unstable angina pectoralis as the pain occurred at rest and is not typical with his previous history. The ameena ent will be admitted to hospital medicine service for further evaluation and management with likely cardiology consult for further evaluation. The patient verbalizes understanding and agreement with this plan and is hemodynamically stable at the time of admission. Dr. Pérez accepting admission. - Lab Data Lab results reviewed: Yes I reviewed the patient's lab results. Result diagrams: 05/06/19 20:14 05/06/19 20:14 Lab Results 05/06/19 05/06/19 05/06/19 Range/Units 20:14 20:14 20:14 WBC 12.7 H (4.3-11.1) K/mcL RBC 4.45 (4.19-5.50) M/mcL Hgb 13.6 (12.9-16.9) g/dL Hct 40.9 (37.5-50.1) % MCV 91.9 (83.0-100.0) fL MCH 30.6 (28.0-33.3) pg MCHC 33.3 (31.6-35.5) g/dL RDW 14.5 (11.5-14.5) % Plt Count 204 (140-400) K/mcL MPV 9.9 (9.4-12.4) fL Immature Gran % 0.4 (0-4) % Seg Neutrophils % 69.8 % Lymphocytes % 21.0 % Monocytes % 6.2 % Eosinophils % 2.0 % Basophils % 0.6 % Neutrophils # 8.8 (1.6-8.9) K/mcL Lymphocytes # 2.7 (0.6-4.6) K/mcL Monocytes # 0.8 (0.0-1.3) K/mcL Eosinophils # 0.3 (0.0-0.6) K/mcL Basophils # 0.1 (0.0-0.2) K/mcL PT 12.0 (9.4-12.1) Seconds INR 1.1 Sodium 141 (136-145) mEq/L Potassium 3.5 (3.5-5.1) mEq/L Chloride 109 H (98-107) mEq/L Carbon Dioxide 28 (23-29) mEq/L BUN 13 (6-20) mg/dL Creatinine 0.91 (0.70-1.30) mg/dL Est GFR ( Amer) > 60 (> 60) Est GFR (Non-Af Amer) > 60 (> 60) BUN/Creatinine Ratio 14 (6-26) Glucose 125 H (70-105) mg/dL Calculated Osmolality 294 (280-300) Calcium 9.3 (8.6-10.3) mg/dL Troponin I < 0.03 (< 0.04) ng/mL - Radiology Data Radiology results reviewed: Yes I reviewed the patient's radiology results. Chest X-Ray 05/06/19 22:54 IMPRESSION: No acute abnormality identified. D/ / Kev Baker MD / Kev Baker MD Interpreting Provider: Kev Baker MD - EKG Data EKG attestation: Yes I reviewed and interpreted this EKG. EKG results narrative: This patient's EKG shows a normal sinus rhythm with a heart of 62 bpm, VA interval of 168 ms, QRS duration 97 ms, QT/QTc interval 424/431 ms respectively. There are no significant ST segment elevations, depressions, pathologic Q waves, abnormal T-wave inversions, nor any other signs of acute ischemic change. This EKG is generally consistent morphology with prior EKG performed on 11/13/2018. Heart Score - Score History: Highly Suspicious EKG: Normal Age: 45-65 Risk Factors: Equal/Greater than 3 risk factor or history of atherosclerotic disease Troponin: Less than normal limit HEART Score Total: 5
[2019-05-06 22:28] LABS: Basophils # 0.1 K/mcL (0.0-0.2); Basophils % 0.6 %; Eosinophils # 0.3 K/mcL (0.0-0.6); Hematocrit 40.9 % (37.5-50.1); Hemoglobin 13.6 g/dL (12.9-16.9); Immature Granulocytes % 0.4 % (0-4); Lymphocytes # 2.7 K/mcL (0.6-4.6); Mean Corpuscular HGB Conc 33.3 g/dL (31.6-35.5); Mean Corpuscular Hemoglobin 30.6 pg (28.0-33.3); Mean Corpuscular Volume 91.9 fL (83.0-100.0); Mean Platelet Volume 9.9 fL (9.4-12.4); Monocytes # 0.8 K/mcL (0.0-1.3); Monocytes % 6.2 %; Neutrophils # 8.8 K/mcL (1.6-8.9); Platelet Count 204 K/mcL (140-400); Red Blood Count 4.45 M/mcL (4.19-5.50); Red Cell Distribution Width 14.5 % (11.5-14.5); Segmented Neutrophils % 69.8 %; White Blood Count 12.7 K/mcL (4.3-11.1)
[2019-05-06 22:40] LABS: INR 1.1
[2019-05-06 22:49] LABS: BUN/Creatinine Ratio 14 (6-26); Blood Urea Nitrogen 13 mg/dL (6-20); Calcium 9.3 mg/dL (8.6-10.3); Carbon Dioxide 28 mEq/L (23-29); Chloride 109 mEq/L (98-107); Glucose 125 mg/dL (70-105); Osmolality,Calculated 294 (280-300); Potassium 3.5 mEq/L (3.5-5.1); Sodium 141 mEq/L (136-145); Troponin I < 0.03 ng/mL (< 0.04); eGFR For African Americans > 60 (> 60); eGFR For Non-African Americans > 60 (> 60)
[2019-05-07] MEDS ORDERED: Naloxone 0.4 MG/ML INJ IVP PRN (00:22)
--- NOTE | 2019-05-07 00:41 | Internal Med History&Physical ---
Date of Encounter: 05/07/19 Time of Encounter: 00:00 Internal Medicine - H&P: HPI Chief complaint: Presyncope, Chest Pain Admitted From: Home Plans for Post Hospital Care: Home History of present illness: Mr. Horn is a 58 year old male with past medical history significant for CAD with ME and stent x1, hypertension, hyperlipidemia, anxiety, tobacco abuse, and marijuana abuse who presents for complaints of generalized weakness and lightheadedness feeling like he was going to pass out and then developed sharp non radiating chest pain. Pain was described as sharp and rated at 2/10. Symptoms were also accompanied by shortness of breath, diaphoresis, and nausea. Took nitroglycerin at home which reportedly resolved his symptoms. Brought in by EMS who also administered aspirin and zofran. States he has never felt like this before and symptoms started while sitting. Denies any alleviating or exacerbating factors besides above medications. ER reported EKG as sinus rhythm with no significant ST segment elevations, depressions, pathologic Q waves, abnormal t wave inversions, or any other signs of acute ischemic change generally consistent with prior EKG dated 11/13/2018. ER also completed chest xray which showed no acute abnormality identified. Currently symptoms remain resolved, denies any headache, numbness, tingling, lightheadedness, chest pain, shortness of breath, abdominal pain, bowel or bladder changes. Had cardiac catheterization in September 2015 with stent placement in proximal LAD. Also had stress test and echocardiogram completed at that time as well. Had carotid dopplers completed in May 2016 showing bilateral nonstenotic plaque. Reports tobacco abuse with cigarettes and occasional marijuana use but denies any alcohol use. Follows regularly with PCP and Cardiology. Past Med Surg Social Fam HX - Past Medical History Medical history: coronary artery disease, hyperlipidemia, hypertension, myocardial infarction Psychiatric history: anxiety - Past Surgical History Surgical History: angioplasty/stent, other Additional surgical history: 1 cardiac stent - Social History Smoking Status: Current every day smoker Smokeless Tobacco Status: No Alcohol use: none Drug use: marijuana - Family History Father Adopted: No Family Member Ethnicity: Non- Living Status: Still Living Hx Family Cardiac Disorders: Yes (ME, HTN) Hx Family Respiratory Disorders: Yes (Smoker) Hx Family Cancer: Yes (Larynx) Hx Family GI Disorders: No Hx Family Endocrine Disorder: Yes (DM) Hx Family Neuromuscular Disorders: No Hx Family Neurologic Disorders: Yes (? aging dementia) Hx Family HEENT Disorders: Yes ([place], poor vision) Hx Family Autoimmune Disorders: No Internal Medicine - H&P: Meds Aspirin [Lo-Dose Aspirin EC] 81 mg PO DAILY 03/01/18 [History] Atorvastatin Calcium [Lipitor] 80 mg PO HS 03/01/18 [History] Metoprolol [Lopressor] 12.5 mg PO BID 03/01/18 [History] Nitroglycerin [Nitrostat] 0.4 mg SL Q5MIN PRN 03/01/18 [History] Allergy/AdvReac Type Severity Reaction Status Date / Time No Known Allergies Allergy Verified 05/06/19 22:12 All Systems PM: A 10-system review of systems was performed and is negative for pertinent findings except as documented above in the HPI. - Constitutional Vitals: Temp Pulse Resp BP Pulse Ox 98.7 F 65 20 119/75 97 05/06/19 22:08 05/06/19 22:08 05/06/19 22:08 05/06/19 22:08 05/06/19 22:08 Exam: General: Alert and oriented. Skin:Normal color, no rash, no lesions. HEENT:Pupils equal, round and reactive. Cardiovascular:Normal S1 & S2, no rubs, murmurs or gallops. No JVD. Pulse regular. Lungs:Breath sounds decreased, no wheezes or crackles. Abdomen:Soft, non-tender, no rigidity. Extremities:No deformity, no edema or tenderness, no joint swelling or clubbing. Neurological:Normal cognition and motor skills. Pulses:Carotid and radial pulses normal +2. Rest of the physical exam is non contributory. Internal Med - H&P Results - Labs CBC & Chem 7: 05/06/19 20:14 05/06/19 20:14 Labs: Short CBC 05/06/19 Range/Units 20:14 WBC 12.7 H (4.3-11.1) K/mcL Hgb 13.6 (12.9-16.9) g/dL Hct 40.9 (37.5-50.1) % Plt Count 204 (140-400) K/mcL Neutrophils # 8.8 (1.6-8.9) K/mcL BMP 05/06/19 20:14 Sodium 141 Potassium 3.5 Chloride 109 H Carbon Dioxide 28 BUN 13 Creatinine 0.91 Glucose 125 H Calcium 9.3 Cardiac Enzymes 05/06/19 Range/Units 20:14 Troponin I < 0.03 (< 0.04) ng/mL - Impressions ITS Impressions Chest X-Ray 05/06/19 22:54 IMPRESSION: No acute abnormality identified. D/ / Kev Baker MD / Kev Baker MD Interpreting Provider: Kev Baker MD - Assessment and Plan (1) Pre-syncope Current Visit: Yes Status: Acute Assessment and plan: Experienced generalized weakness and lightheadedness feeling like he was going to pass out while sitting. Also developed chest pain after symptom onset and all symptoms were resolved after nitro, aspirin, and zofran. Continuous cardiac monitoring. Echocardiogram and carotid dopplers ordered. Orthostatic vitals ordered. (2) Chest pain Current Visit: Yes Status: Acute Assessment and plan: Shortly after onset of generalized weakness, lightheadedness, and feeling like he was going to pass out developed sharp non radiating left sided chest pain. Currently resolved after receiving nitro x1, aspirin, and zofran. ER reported EKG as sinus rhythm with no significant ST segment elevations, depressions, pathologic Q waves, abnormal t wave inversions, or any other signs of acute ischemic change generally consistent with prior EKG dated 11/13/2018. Continuous cardiac monitoring. Initial troponin in ER negative, serial troponins ordered. Echocardiogram ordered. Cardiology consult ordered, will need called in a.m. Qualifiers: Chest pain type: unspecified Qualified Code(s): R07.9 - Chest pain, unspecified (3) Increased white blood cell count Current Visit: Yes Status: Acute Assessment and plan: Slightly elevated at 12.7 No signs of infection, chest xray clear, no urinary symptoms. Repeat labs ordered. Qualifiers: Leukocytosis type: unspecified Qualified Code(s): D72.829 - Elevated white blood cell count, unspecified (4) Hypertension Current Visit: Yes Status: Chronic Assessment and plan: Currently well controlled. Restart beta lisa with caution once verified if suspected to be related to above symptoms. Qualifiers: Hypertension type: unspecified Qualified Code(s): I10 - Essential (primary) hypertension (5) Tobacco abuse Current Visit: Yes Status: Chronic Assessment and plan: Cessation strongly encouraged. - Time Spent With Patient Total time spent is greater than 50% in coordination of care (as documented) at patient's floor/unit and/or counseling patient:
[2019-05-07] MEDS ORDERED: *HR* Heparin 5,000 UNIT/ML VIAL SQ SCH (06:00)
[2019-05-07] MEDS ORDERED: Perflutren Lipid Microsphere 1.3 ML in 0.9 % Sodium Chloride 8.7 ML IVP ONE (08:32)
[2019-05-07] MEDS ORDERED: Aspirin Enteric Coated 81 MG Tablet PO SCH (09:00)
[2019-05-07 11:06] VITALS: BP 107/69
[2019-05-07 12:24] LABS: Basophils # 0.1 K/mcL (0.0-0.2); Eosinophils # 0.3 K/mcL (0.0-0.6); Eosinophils % 2.5 %; Hematocrit 39.9 % (37.5-50.1); Hemoglobin 13.2 g/dL (12.9-16.9); Immature Granulocytes % 0.2 % (0-4); Lymphocytes # 2.9 K/mcL (0.6-4.6); Mean Corpuscular HGB Conc 33.1 g/dL (31.6-35.5); Mean Corpuscular Hemoglobin 30.5 pg (28.0-33.3); Mean Corpuscular Volume 92.1 fL (83.0-100.0); Mean Platelet Volume 10.3 fL (9.4-12.4); Monocytes # 0.7 K/mcL (0.0-1.3); Monocytes % 7.1 %; Neutrophils # 6.3 K/mcL (1.6-8.9); Platelet Count 202 K/mcL (140-400); Red Blood Count 4.33 M/mcL (4.19-5.50); Red Cell Distribution Width 14.4 % (11.5-14.5); Segmented Neutrophils % 61.2 %; White Blood Count 10.2 K/mcL (4.3-11.1)
[2019-05-07 12:46] LABS: BUN/Creatinine Ratio 16 (6-26); Blood Urea Nitrogen 13 mg/dL (6-20); Carbon Dioxide 26 mEq/L (23-29); Chloride 111 mEq/L (98-107); Glucose 97 mg/dL (70-105); Osmolality,Calculated 290 (280-300); Potassium 3.7 mEq/L (3.5-5.1); Sodium 140 mEq/L (136-145); eGFR For African Americans > 60 (> 60); eGFR For Non-African Americans > 60 (> 60)
--- NOTE | 2019-05-07 13:45 | Electrocardiograph Report ---
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
--- NOTE | 2019-05-07 14:27 | Discharge Summary ---
- NOTES TO OUTPATIENT PROVIDER Notes to Outpatient Provider: f/u with PCP within 2 weeks. Orders not resulted at time of discharge: Pending orders 05/07/19 07:32 NM susanne perf SPECT multi [NM] Routine Date of Encounter: 05/07/19 Time of Encounter: 14:25 - Discharge Diagnosis (1) Chest pain Priority: Primary Status: Acute Qualifiers: Chest pain type: unspecified Qualified Code(s): R07.9 - Chest pain, unspecified (2) Pre-syncope Priority: Primary Status: Acute (3) Hypertension Priority: Secondary Status: Chronic Qualifiers: Hypertension type: unspecified Qualified Code(s): I10 - Essential (primary) hypertension (4) Tobacco abuse Priority: Secondary Status: Chronic (5) Increased white blood cell count Priority: Primary Status: Resolved Qualifiers: Leukocytosis type: unspecified Qualified Code(s): D72.829 - Elevated white blood cell count, unspecified Hospital course: Mr. Horn is a 58 year old male who past medical history of myocardial infarction in 2014 with stent placement currently on baby aspirin and nitroglycerin for the management of angina pectoralis presenting for one hour of midsternal chest pain. Patient states that he took a nitroglycerin approximate one hour ago due to this pain which completely resolved his symptoms, however the patient was continuing to feel lightheaded and dizzy with some mild nausea and called 911. EMS states that they gave the remainder dose of 381 mg aspirins to complete the patient's 324 mg dose required for cardiac prophylaxis, they also gave Zofran 4 mg IV in route which completely resolved the patient's nausea. Patient states at this time that he was Comes completely asymptomatic and has no other concerns or complaints at this time. Further cardiac workup revealed negative serial troponin, EKG without acute ST-T change, carotid Doppler with nonstenotic disease. An echocardiogram and stress test were both unremarkable. Patient symptoms is transient and resolved after admission. He currently is symptoms free, his vital signs are stable. Patient is discharged home today, follow-up with PCP within 2 weeks. Discharge discussed with: patient Time spent discussing smoking cessation with patient: more than 10 minutes - Time Spent with Patient Total time spent providing and/or coordinating discharge services: Time spent: Greater than 30 minutes - Discharge Medications Prescriptions: Continued Nitroglycerin [Nitrostat] 0.4 mg SL Q5MIN PRN PRN Reason: Chest Pain Atorvastatin Calcium [Lipitor] 80 mg PO HS Metoprolol [Lopressor] 12.5 mg PO BID Aspirin [Lo-Dose Aspirin EC] 81 mg PO DAILY Home Medications: Aspirin [Lo-Dose Aspirin EC] 81 mg PO DAILY 03/01/18 [History] Atorvastatin Calcium [Lipitor] 80 mg PO HS 03/01/18 [History] Metoprolol [Lopressor] 12.5 mg PO BID 03/01/18 [History] Nitroglycerin [Nitrostat] 0.4 mg SL Q5MIN PRN 03/01/18 [History] Allergies/Adverse Reactions: Allergy/AdvReac Type Severity Reaction Status Date / Time No Known Allergies Allergy Verified 05/06/19 22:12 Date of admission: 05/06/19 23:49 Primary care physician: Renata Fuller Anticipated date of discharge: 05/07/19 - Constitutional Vitals: Temp Pulse Resp BP Pulse Ox 97.7 F 65 15 107/69 97 05/07/19 11:05 05/07/19 11:05 05/07/19 11:05 05/07/19 11:05 05/07/19 11:05 General appearance: Present: A&O X 3 Exam: General: Alert and oriented. Skin:Normal color, no rash, no lesions. HEENT:Pupils equal, round and reactive. Cardiovascular:Normal S1 & S2, no rubs, murmurs or gallops. No JVD. Pulse regular. Lungs:Breath sounds decreased, no wheezes or crackles. Abdomen:Soft, non-tender, no rigidity. Extremities:No deformity, no edema or tenderness, no joint swelling or clubbing. Neurological:Normal cognition and motor skills. Pulses:Carotid and radial pulses normal +2. Rest of the physical exam is non contributory. - Patient Status Disposition: Home, Self-Care Condition: Fair Functional capacity at discharge: independent ambulation Overall status at discharge: patient is progressing back to baseline - Discharge Instructions Follow Up With: Renata Fuller MD [Primary Care Provider] - 05/20/19 9:30 am Forms: ED Satisfaction Letter - Diet and Activity Activity: increase activity as tolerated Diet: low fat, low cholesterol, low salt diet
== END 2019-05-07 15:19 | disposition home or self-care (01) ==
LOC: EMEROOARM 22:06 → 3BNU 22:06
PROVIDERS: ADMIT Pediatrics; ATTEND Pediatrics